=== PATIENT | female | born 1960 | race Caucasian/White ===

== ENCOUNTER → 2017-01-20 | Outpatient (CLI) | payer MEDICAID | END | disposition home or self-care (01) | LOC: CFH 12:49 | PROVIDERS: ATTEND Internal Medicine Pulmonary Disease | DX: Z12.2 Encounter for screening for malignant neoplasm of respiratory organs (principal); J43.2 Centrilobular emphysema; R06.00 Dyspnea, unspecified; Z87.891 Personal history of nicotine dependence | CPT/HCPCS: G0297 ==

== ENCOUNTER → 2017-01-31 | Outpatient (CLI) | payer MEDICAID ==
[~2017-01-31] MED LIST: OMNIPAQUE 350 MG/ML, 100ML BOTTLE ONE
== END | disposition home or self-care (01) ==
LOC: CFH 11:07
PROVIDERS: ATTEND Internal Medicine Pulmonary Disease
DX: R06.00 Dyspnea, unspecified (principal)
CPT/HCPCS: 70460; 82565; Q9967

== ENCOUNTER → 2017-05-16 | Outpatient (CLI) | payer MEDICAID ==
[~2017-05-16] MED LIST changes: +AMLO2.5T PO; +CALC1TAB69 PO; +CHOL10003 PO; +DICLOFENAC DR PO; +LAMO200T PO; +LORA10TA3 PO; +LOSA100T6 PO; +OMEP-110 PO; -OMNIPAQUE 350 MG/ML, 100ML BOTTLE ONE; +ZIPR80CA3 PO
[2017-05-16 11:48] LABS: ASPARTATE AMINO TRANSFERASE 15 U/L (15-37); BLOOD UREA NITROGEN 17 mg/dL (7-18)
== END | disposition home or self-care (01) ==
LOC: STAR 10:36
PROVIDERS: ATTEND Otolaryngology
DX: Z01.818 Encounter for other preprocedural examination (principal); R94.31 Abnormal electrocardiogram [ECG] [EKG]; D37.05 Neoplasm of uncertain behavior of pharynx; D37.09 Neoplasm of uncertain behavior of other specified sites of the oral cavity
CPT/HCPCS: 36415; 80053; 93005

== ENCOUNTER 2017-05-23 07:42 | Day surgery (SDC) | payer MEDICAID ==
[2017-05-16 10:53] VITALS: BP 156/91
[~2017-05-23] VITALS: Ht 158.8 cm; Wt 81.6 kg
[~2017-05-23 07:42] MED LIST changes: +EPINEPHRINE 1 MG/ML, 1ML ONE; +LIDOCAINE/PF 1%, 30ML ONE; +OXYMETAZOLINE NASAL SPRAY 0.05%, 15ML ONE
[2017-05-23] MEDS ORDERED: LACTATED RINGERS 1,000 ML IV SCH (08:35)
[2017-05-23] MEDS ORDERED: LIDOCAINE 1%, 2ML ONE (08:46)
[2017-05-23] MEDS ORDERED: LIDOCAINE 1%, 2ML SQ PRN (09:00)
[2017-05-23] MEDS ORDERED: FENTANYL PF 100 MCG/2ML ONE (10:56)
[2017-05-23] MEDS ORDERED: ROCURONIUM 10 MG/ML ONE (11:01)
[2017-05-23] MEDS ORDERED: METOCLOPRAMIDE 5 MG/ML, 2ML ONE (11:01)
[2017-05-23] MEDS ORDERED: SUCCINYLCHOLINE 20 MG/ML, 10ML ONE (11:01)
[2017-05-23] MEDS ORDERED: CEFAZOLIN 1,000 MG ONE (11:01)
[2017-05-23] MEDS ORDERED: ONDANSETRON 2MG/ML, 2ML ONE ×2 (11:01→11:55)
[2017-05-23] MEDS ORDERED: PROPOFOL 10 MG/ML, 20ML ONE (11:01)
[2017-05-23] MEDS ORDERED: DEXAMETHASONE 4 MG/ML, 1ML ONE (11:01)
[2017-05-23] MEDS ORDERED: FENTANYL PF 100 MCG/2ML IV PRN (11:30)
[2017-05-23] MEDS ORDERED: OXYcodone 5 MG/5 ML ORAL.SOL UDC PO PRN (11:30)
[2017-05-23] MEDS ORDERED: MEPERIDINE/PF 25MG/0.5ML IVPush PRN (11:30)
[2017-05-23] MEDS ORDERED: LORazepam 2 MG/ML, 1ML IVPush PRN (11:30)
[2017-05-23] MEDS ORDERED: ONDANSETRON 2MG/ML, 2ML IVPush PRN (11:30)
[2017-05-23] MEDS ORDERED: hydrALAzine 20 MG/ML, 1ML IV PRN (11:30)
[2017-05-23] MEDS ORDERED: LABETALOL 5MG/ML, 20ML IV PRN (11:30)
[2017-05-23] MEDS ORDERED: PROMETHAZINE 25 MG/ML, 1ML IV PRN (11:30)
[2017-05-23] MEDS ORDERED: HYDROmorphone 1 MG/ML, 1ML IV PRN (11:30)
== END 2017-05-23 13:55 | disposition home or self-care (01) ==
LOC: OUT 07:42
PROVIDERS: ATTEND Otolaryngology
DX: D10.39 Benign neoplasm of other parts of mouth (principal); I10 Essential (primary) hypertension; K21.9 Gastro-esophageal reflux disease without esophagitis; F32.9 Major depressive disorder, single episode, unspecified; F41.9 Anxiety disorder, unspecified; F17.200 Nicotine dependence, unspecified, uncomplicated; Z91.018 Allergy to other foods
CPT/HCPCS: 31535; 42106; 42140; 88302; 88307; J0171; J0330; J0690; J1100; J2405; J2704; J2765; J3010; J3490; J7120

== ENCOUNTER → 2017-08-03 | Outpatient (CLI) | payer MEDICAID ==
[~2017-08-03] MED LIST changes: -EPINEPHRINE 1 MG/ML, 1ML ONE; -LIDOCAINE/PF 1%, 30ML ONE; -OXYMETAZOLINE NASAL SPRAY 0.05%, 15ML ONE
== END | disposition home or self-care (01) ==
LOC: CFH 14:49
PROVIDERS: ATTEND Nurse Practitioner Family
DX: Z12.31 Encounter for screening mammogram for malignant neoplasm of breast (principal)
CPT/HCPCS: G0202

== ENCOUNTER → 2017-12-05 | Outpatient (CLI) | payer MEDICAID ==
[~2017-12-05] MED LIST changes: -LAMO200T PO; +LAMO200T2 PO
== END | disposition home or self-care (01) ==
LOC: CFH 13:03
PROVIDERS: ATTEND Registered Nurse
DX: Z12.2 Encounter for screening for malignant neoplasm of respiratory organs (principal); J44.9 Chronic obstructive pulmonary disease, unspecified; I31.3 Pericardial effusion (noninflammatory); F17.210 Nicotine dependence, cigarettes, uncomplicated
CPT/HCPCS: G0297

== ENCOUNTER → 2018-04-05 | Outpatient (CLI) | payer MEDICAID, OTHER | END | disposition home or self-care (01) | LOC: CFH 09:55 | PROVIDERS: ATTEND Internal Medicine Cardiovascular Disease | DX: I31.3 Pericardial effusion (noninflammatory) (principal); I10 Essential (primary) hypertension; Z87.891 Personal history of nicotine dependence | CPT/HCPCS: 93306 ==

== ENCOUNTER → 2018-05-28 | Outpatient (CLI) | payer MEDICAID ==
[~2018-05-28] MED LIST changes: +ALBU18HF INH; -AMLO2.5T PO; +AMLO2.5T3 PO; -LOSA100T6 PO; +LOSA100T7 PO; +PROP20TA PO; +PROPRANOLOL PO; +UMEC62.5 INH
== END | disposition home or self-care (01) ==
LOC: WOUND 07:51
PROVIDERS: ATTEND Internal Medicine
DX: L89.42 Pressure ulcer of contiguous site of back, buttock and hip, stage 2 (principal); I10 Essential (primary) hypertension; J44.9 Chronic obstructive pulmonary disease, unspecified; F31.32 Bipolar disorder, current episode depressed, moderate; F41.9 Anxiety disorder, unspecified; F17.210 Nicotine dependence, cigarettes, uncomplicated
CPT/HCPCS: 99215

== ENCOUNTER → 2018-06-07 | Outpatient (CLI) | payer MEDICAID ==
[~2018-06-07] MED LIST changes: -ALBU18HF INH; +AMLO2.5T PO; -AMLO2.5T3 PO; +LOSA100T6 PO; -LOSA100T7 PO; -PROP20TA PO; -PROPRANOLOL PO; -UMEC62.5 INH
== END | disposition home or self-care (01) ==
LOC: CFH 14:56
PROVIDERS: ATTEND Nurse Practitioner Family
DX: N18.3 Chronic kidney disease, stage 3 (moderate) (principal); J44.9 Chronic obstructive pulmonary disease, unspecified
CPT/HCPCS: 76770

== ENCOUNTER → 2018-06-11 | Outpatient (CLI) | payer MEDICAID ==
[~2018-06-11] MED LIST changes: +ALBU18HF INH; -AMLO2.5T PO; +AMLO2.5T3 PO; -LOSA100T6 PO; +LOSA100T7 PO; +PROP20TA PO; +PROPRANOLOL PO; +UMEC62.5 INH
== END | disposition home or self-care (01) ==
LOC: WOUND 08:16
PROVIDERS: ATTEND Internal Medicine
DX: L89.152 Pressure ulcer of sacral region, stage 2 (principal); I12.9 Hypertensive chronic kidney disease with stage 1 through stage 4 chronic kidney disease, or unspecified chronic kidney disease; N18.3 Chronic kidney disease, stage 3 (moderate); F41.9 Anxiety disorder, unspecified; F31.32 Bipolar disorder, current episode depressed, moderate; J44.9 Chronic obstructive pulmonary disease, unspecified; F17.210 Nicotine dependence, cigarettes, uncomplicated
CPT/HCPCS: 99214

== ENCOUNTER → 2018-06-14 | Outpatient (CLI) | payer MEDICAID ==
[~2018-06-14] MED LIST changes: -ALBU18HF INH; +AMLO2.5T PO; -AMLO2.5T3 PO; +LOSA100T6 PO; -LOSA100T7 PO; -PROP20TA PO; -UMEC62.5 INH
[2018-06-14 11:48] LABS: ALANINE AMINOTRANSFERASE 15 U/L (12-78); ALBUMIN 3.9 g/dL (3.4-5.0); ANION GAP 7 mmol/L (5-15); CALCIUM 9.5 mg/dL (8.5-10.1); CHLORIDE 107 mmol/L (98-107)
[2018-06-14 11:51] LABS: ALKALINE PHOSPHATASE 85 U/L (45-117); BILIRUBIN,TOTAL 0.3 mg/dL (0.2-1.0); CREATININE 1.39 mg/dL (0.55-1.02); TOTAL PROTEIN 7.3 g/dL (6.4-8.2)
== END | disposition home or self-care (01) ==
LOC: STAR 10:48
PROVIDERS: ATTEND Otolaryngology
DX: Z01.818 Encounter for other preprocedural examination (principal); K13.79 Other lesions of oral mucosa; D10.5 Benign neoplasm of other parts of oropharynx; F17.210 Nicotine dependence, cigarettes, uncomplicated
CPT/HCPCS: 36415; 80053; 93005

== ENCOUNTER 2018-06-19 05:20 | Day surgery (SDC) | payer MEDICAID ==
[~2018-06-19] VITALS: Ht 157.5 cm; Wt 61.3 kg
[~2018-06-19 05:20] MED LIST changes: -AMLO2.5T PO; +AMLO2.5T3 PO; -LOSA100T6 PO; +LOSA100T7 PO
[2018-06-19] MEDS ORDERED: LACTATED RINGERS 1,000 ML IV SCH (06:13)
[2018-06-19] MEDS ORDERED: PROP20TA PO (06:14)
[2018-06-19 06:39] VITALS: BP 119/78
[2018-06-19] MEDS ORDERED: ONDANSETRON ODT 8 MG ONE ×2 (06:45)
[2018-06-19] MEDS ORDERED: ALBU18HF INH (06:45)
[2018-06-19] MEDS ORDERED: UMEC62.5 INH (06:45)
[2018-06-19] MEDS ORDERED: MIDAZOLAM 1 MG/ML, 2ML ONE (06:48)
[2018-06-19] MEDS ORDERED: FENTANYL PF 250 MCG/5ML ONE (06:48)
[2018-06-19] MEDS ORDERED: LIDOCAINE-MPF 2% ,5ML ONE (06:49)
[2018-06-19] MEDS ORDERED: PROPOFOL 10 MG/ML, 20ML ONE (06:49)
[2018-06-19] MEDS ORDERED: SUCCINYLCHOLINE 20 MG/ML, 10ML ONE (06:50)
[2018-06-19] MEDS ORDERED: ROCURONIUM 10MG/ML,5ML ONE (06:50)
[2018-06-19] MEDS ORDERED: DEXAMETHASONE 4 MG/ML, 1ML ONE ×2 (06:51)
[2018-06-19] MEDS ORDERED: PHENYLEPHRINE 10 MG/ML ONE (06:51)
[2018-06-19] MEDS ORDERED: OXYMETAZOLINE NASAL SPRAY 0.05%, 15ML ONE (06:58)
[2018-06-19] MEDS ORDERED: LIDOCAINE 1%-EPI 1:100K, 30ML ONE (06:58)
[2018-06-19] MEDS ORDERED: GLYCOPYRROLATE 0.2MG/1ML, 5ML ONE (07:45)
[2018-06-19] MEDS ORDERED: KETOROLAC 30 MG/1 ML ONE (08:10)
[2018-06-19] MEDS ORDERED: CEFAZOLIN 1,000 MG ONE (08:15)
[2018-06-19] MEDS ORDERED: PROMETHAZINE 25 MG/ML, 1ML IV PRN (08:30)
[2018-06-19] MEDS ORDERED: OXYcodone 5 MG/5 ML ORAL.SOL UDC PO PRN (08:30)
[2018-06-19] MEDS ORDERED: ALBUTEROL SULFATE 2.5 MG/3 ML NPPB PRN (08:30)
[2018-06-19] MEDS ORDERED: LABETALOL 5MG/ML, 20ML IV PRN (08:30)
[2018-06-19] MEDS ORDERED: FENTANYL PF 100 MCG/2ML IV PRN (08:30)
[2018-06-19] MEDS ORDERED: MEPERIDINE/PF 25MG/0.5ML IVPush PRN (08:30)
[2018-06-19] MEDS ORDERED: ACETAMINOPHEN 325 MG TABLET PO PRN (08:30)
[2018-06-19] MEDS ORDERED: HYDROmorphone 1 MG/ML, 1ML IV PRN (08:30)
[2018-06-19] MEDS ORDERED: hydrALAzine 20 MG/ML, 1ML IV PRN (08:30)
[2018-06-19] MEDS ORDERED: HALOPERIDOL 5 MG/ML IV PRN (08:30)
== END 2018-06-19 09:50 | disposition home or self-care (01) ==
LOC: OUT 05:20
PROVIDERS: ATTEND Otolaryngology
DX: K13.21 Leukoplakia of oral mucosa, including tongue (principal); J44.9 Chronic obstructive pulmonary disease, unspecified; I10 Essential (primary) hypertension; Z79.899 Other long term (current) drug therapy
CPT/HCPCS: 40812; 88305; J0330; J0690; J1100; J1885; J2250; J2370; J2704; J3010; J3490; J7120; Q0162

== ENCOUNTER → 2018-12-12 | Outpatient (CLI) | payer MEDICAID ==
[~2018-12-12] MED LIST changes: +ALBU18HF INH; -AMLO2.5T3 PO; +AMLO2.5T5 PO; +LORA-247 PO; -LORA10TA3 PO; +LOSA100T14 PO; -LOSA100T7 PO; +PROP20TA PO; +UMEC62.5 INH
== END | disposition home or self-care (01) ==
LOC: CFH 15:40
PROVIDERS: ATTEND Nurse Practitioner
DX: Z12.2 Encounter for screening for malignant neoplasm of respiratory organs (principal); J43.2 Centrilobular emphysema; I31.3 Pericardial effusion (noninflammatory); F17.210 Nicotine dependence, cigarettes, uncomplicated
CPT/HCPCS: G0297